=== PATIENT | female | born 1980 | race Caucasian/White ===

== ENCOUNTER 2023-01-16 17:45 | Emergency (ER) | payer OTHER ==
[~2023-01-16] VITALS: Ht 162.6 cm; Wt 99.8 kg
[2023-01-16 18:10] VITALS: BP 156/101
[2023-01-16 18:42] LABS: BASOPHILS ABSOLUTE AUTO 0.07 K/mm3 (0.00-0.23); BASOPHILS PERCENT AUTO 1 % (0-2); EOSINOPHILS ABSOLUTE AUTO 0.03 K/mm3 (0.00-0.68); EOSINOPHILS PERCENT AUTO 1 % (0-6); Hematocrit 40.5 % (33.0-51.0); Hemoglobin 13.8 g/dL (11.5-16.0); IMMATURE GRAN ABSOLUTE AUTO 0.01 K/mm3 (0.00-0.10); IMMATURE GRAN PERCENT AUTO 0 % (0-1); LYMPHOCYTES ABSOLUTE AUTO 0.86 K/mm3 (0.84-5.20); LYMPHOCYTES PERCENT AUTO 14 % (21-46); MONOCYTES ABSOLUTE AUTO 0.35 K/mm3 (0.16-1.47); MONOCYTES PERCENT AUTO 6 % (4-13); Mean Corpuscular HGB 31.1 pg (26.0-34.0); Mean Corpuscular HGB Conc 34.1 g/dL (31.5-36.5); Mean Corpuscular Volume 91 fL (80-100); Mean Platelet Volume 9.6 fL (9.1-12.4); NEUTROPHILS ABSOLUTE AUTO 4.83 K/mm3 (1.96-9.15); NEUTROPHILS PERCENT AUTO 79 % (41-73); Platelet Count 196 K/mm3 (150-400); RDW Standard Deviation 43.8 fL (35.1-46.3); Red Blood Cell Count 4.44 M/mm3 (3.80-5.20); White Blood Cell Count 6.15 K/mm3 (4.00-11.30)
[2023-01-16 19:06] LABS: Albumin, Blood 3.8 g/dL (3.4-5.0); Bilirubin, Total 0.7 mg/dL (0.1-1.0); Bun/Creatinine Ratio 21.2 (12.0-20.0); Creatinine, Blood 0.52 mg/dL (0.40-1.00); Globulin, Blood 3.8 g/dL (2.2-4.0); Potassium, Blood 4.2 mmol/L (3.5-5.5); Total Protein, Blood 7.6 g/dL (6.4-8.2)
== END 2023-01-16 20:31 | disposition home or self-care (01) ==
LOC: ER 17:45
PROVIDERS: Student in an Organized Health Care Education/Training Program
DX: B34.9 Viral infection, unspecified (principal); R55 Syncope and collapse
CPT/HCPCS: 80053; 85025; 99284

== ENCOUNTER 2023-07-21 17:16 | Emergency (ER) | payer OTHER ==
[~2023-07-21] VITALS: Ht 167.6 cm; Wt 81.7 kg
[2023-07-21 17:49] VITALS: BP 160/95
[2023-07-21 18:45] LABS: BASOPHILS ABSOLUTE AUTO 0.02 K/mm3 (0.00-0.23); BASOPHILS PERCENT AUTO 0 % (0-2); EOSINOPHILS ABSOLUTE AUTO 0.05 K/mm3 (0.00-0.68); EOSINOPHILS PERCENT AUTO 1 % (0-6); Hematocrit 41.9 % (33.0-51.0); Hemoglobin 13.9 g/dL (11.5-16.0); IMMATURE GRAN ABSOLUTE AUTO 0.02 K/mm3 (0.00-0.10); IMMATURE GRAN PERCENT AUTO 0 % (0-1); LYMPHOCYTES ABSOLUTE AUTO 0.67 K/mm3 (0.84-5.20); LYMPHOCYTES PERCENT AUTO 9 % (21-46); MONOCYTES ABSOLUTE AUTO 0.55 K/mm3 (0.16-1.47); MONOCYTES PERCENT AUTO 8 % (4-13); Mean Corpuscular HGB 31.5 pg (26.0-34.0); Mean Corpuscular HGB Conc 33.2 g/dL (31.5-36.5); Mean Corpuscular Volume 95 fL (80-100); Mean Platelet Volume 9.7 fL (9.1-12.4); NEUTROPHILS ABSOLUTE AUTO 5.96 K/mm3 (1.96-9.15); NEUTROPHILS PERCENT AUTO 82 % (41-73); Platelet Count 114 K/mm3 (150-400); RDW Coefficient Variation 12.6 % (11.7-14.2); RDW Standard Deviation 44.2 fL (35.1-46.3); Red Blood Cell Count 4.41 M/mm3 (3.80-5.20); White Blood Cell Count 7.27 K/mm3 (4.00-11.30)
[2023-07-21 19:18] LABS: Albumin, Blood 3.9 g/dL (3.4-5.0); Albumin/Globulin Ratio 0.9 (0.8-1.8); Bilirubin, Total 1.1 mg/dL (0.1-1.0); Bun/Creatinine Ratio 20.3 (12.0-20.0); Calcium, Blood 9.2 mg/dL (8.5-10.1); Creatinine, Blood 0.64 mg/dL (0.40-1.00); Globulin, Blood 4.3 g/dL (2.2-4.0); Potassium, Blood 4.2 mmol/L (3.5-5.5); Total Protein, Blood 8.2 g/dL (6.4-8.2)
[2023-07-21] MEDS ORDERED: NS 1,000 ML IV SCH (21:05)
[2023-07-21] MEDS ORDERED: OxyCODONE HCL 5 MG TAB PO ONE (21:15)
[2023-07-21] MEDS ORDERED: Promethazine HCl 25 MG Tab PO ONE (21:15)
[2023-07-21] MEDS ORDERED: PROM25 PO (21:43)
== END 2023-07-21 21:51 | disposition home or self-care (01) ==
LOC: ER 17:16
PROVIDERS: Student in an Organized Health Care Education/Training Program
DX: K85.90 Acute pancreatitis without necrosis or infection, unspecified (principal)
CPT/HCPCS: 76705; 80053; 83690; 85025; 96360; 99284-25; A9270; J7030

== ENCOUNTER 2023-12-08 14:05 | Inpatient (IN) | payer OTHER ==
[~2023-12-08] VITALS: Ht 162.6 cm; Wt 110.7 kg
[~2023-12-08 14:05] MED LIST: PROM25 PO
[2023-12-08 14:32] LABS: BASOPHILS ABSOLUTE AUTO 0.02 K/mm3 (0.00-0.23); BASOPHILS PERCENT AUTO 0 % (0-2); EOSINOPHILS ABSOLUTE AUTO 0.04 K/mm3 (0.00-0.68); EOSINOPHILS PERCENT AUTO 1 % (0-6); Hematocrit 40.6 % (33.0-51.0); Hemoglobin 14.1 g/dL (11.5-16.0); IMMATURE GRAN ABSOLUTE AUTO 0.02 K/mm3 (0.00-0.10); IMMATURE GRAN PERCENT AUTO 0 % (0-1); LYMPHOCYTES ABSOLUTE AUTO 0.69 K/mm3 (0.84-5.20); LYMPHOCYTES PERCENT AUTO 8 % (21-46); MONOCYTES ABSOLUTE AUTO 0.52 K/mm3 (0.16-1.47); MONOCYTES PERCENT AUTO 6 % (4-13); Mean Corpuscular HGB 34.9 pg (26.0-34.0); Mean Corpuscular HGB Conc 34.7 g/dL (31.5-36.5); Mean Corpuscular Volume 101 fL (80-100); Mean Platelet Volume 9.7 fL (9.1-12.4); NEUTROPHILS ABSOLUTE AUTO 7.47 K/mm3 (1.96-9.15); NEUTROPHILS PERCENT AUTO 85 % (41-73); Platelet Count 162 K/mm3 (150-400); RDW Coefficient Variation 12.5 % (11.7-14.2); RDW Standard Deviation 46.5 fL (35.1-46.3); Red Blood Cell Count 4.04 M/mm3 (3.80-5.20); White Blood Cell Count 8.76 K/mm3 (4.00-11.30)
[2023-12-08 15:07] LABS: Albumin, Blood 3.5 g/dL (3.4-5.0); Albumin/Globulin Ratio 0.8 (0.8-1.8); Bilirubin, Total 0.7 mg/dL (0.1-1.0); Bun/Creatinine Ratio 10.3 (12.0-20.0); Calcium, Blood 8.8 mg/dL (8.5-10.1); Creatinine, Blood 0.59 mg/dL (0.40-1.00); Globulin, Blood 4.3 g/dL (2.2-4.0); Potassium, Blood 3.3 mmol/L (3.5-5.5); Total Protein, Blood 7.8 g/dL (6.4-8.2)
[2023-12-08] MEDS ORDERED: Ketorolac Tromethamine 30mg Vial IV ONE (15:10)
[2023-12-08] MEDS ORDERED: NS 1,000 ML IV SCH ×2 (15:10→18:55)
[2023-12-08] MEDS ORDERED: Ondansetron HCl 2 MG / ML 2ML Vial IV ONE (15:10)
[2023-12-08] MEDS ORDERED: Metoclopramide HCl 5MG / ML 2ML Vial IV PRN (16:00)
[2023-12-08] MEDS ORDERED: Ondansetron HCl 2 MG / ML 2ML Vial IV PRN (16:00)
[2023-12-08] MEDS ORDERED: HYDROmorphone HCl/Pf 1MG SYR IV PRN (16:05)
[2023-12-08] MEDS ORDERED: LORazepam 0.5 MG Tab PO PRN (16:10)
[2023-12-08] MEDS ORDERED: VILAZODONE HCL20 MG PO (17:38)
[2023-12-08] MEDS ORDERED: Baclofen20 MG PO (17:38)
[2023-12-08] MEDS ORDERED: Buspirone HCl15 MG PO (17:38)
[2023-12-08] MEDS ORDERED: TRAZ100 PO (17:49)
[2023-12-08] MEDS ORDERED: PROP10 PO (17:49)
[2023-12-08 18:02] VITALS: BP 159/99
--- NOTE | 2023-12-08 18:23 | NUR ---
ADMISSION NOTE: PATIENT ARRIVES TO ROOM VIA WHEELCHAIR AT 1740 FROM ER ADMITT FOR DX'S OF ACUTE PACREATITIS. PATIENT OREINTATED TO ROOM AND CALL SYSTEM. ADMISSION, MEDRIC AND SKIN ASSESSMENT c 2 RN'S VERIFIED COMPLETED. PATIENT A/OX4, PLEASANT AND COOPERATIVE c CARE. PATIENT REPORTS NAUSEOUS AND PAIN 8/10 TO MID ABDOMEN AND RADIATES TO BACK, MEDICATED FOR NAUSEA AND FOR PAIN PER EMAR c MOD EFFECT. PATIENT ON CL DIET. PATIENT RESTING IN BED c CALL LIGHT IN REACH.
[2023-12-08 19:38] VITALS: BP 144/91
[2023-12-08] MEDS ORDERED: TraZODone HCl 100 MG Tab PO SCH (21:00)
[2023-12-08] MEDS ORDERED: Baclofen 10 MG Tab PO SCH (21:00)
[2023-12-08] MEDS ORDERED: Propranolol HCL 20 MG TAB PO SCH (21:00)
[2023-12-08] MEDS ORDERED: BusPIRone HCl 10 MG Tab PO SCH (21:00)
[2023-12-09 03:14] VITALS: BP 136/76
[2023-12-09 05:32] LABS: BASOPHILS ABSOLUTE AUTO 0.01 K/mm3 (0.00-0.23); BASOPHILS PERCENT AUTO 0 % (0-2); EOSINOPHILS ABSOLUTE AUTO 0.06 K/mm3 (0.00-0.68); EOSINOPHILS PERCENT AUTO 1 % (0-6); Hemoglobin 14.8 g/dL (11.5-16.0); IMMATURE GRAN ABSOLUTE AUTO 0.03 K/mm3 (0.00-0.10); IMMATURE GRAN PERCENT AUTO 0 % (0-1); LYMPHOCYTES ABSOLUTE AUTO 0.72 K/mm3 (0.84-5.20); LYMPHOCYTES PERCENT AUTO 8 % (21-46); MONOCYTES PERCENT AUTO 7 % (4-13); Mean Corpuscular HGB 34.7 pg (26.0-34.0); Mean Corpuscular HGB Conc 33.6 g/dL (31.5-36.5); Mean Corpuscular Volume 103 fL (80-100); Mean Platelet Volume 10.3 fL (9.1-12.4); NEUTROPHILS ABSOLUTE AUTO 7.95 K/mm3 (1.96-9.15); NEUTROPHILS PERCENT AUTO 84 % (41-73); Platelet Count 148 K/mm3 (150-400); RDW Coefficient Variation 12.7 % (11.7-14.2); RDW Standard Deviation 47.9 fL (35.1-46.3); Red Blood Cell Count 4.26 M/mm3 (3.80-5.20); White Blood Cell Count 9.47 K/mm3 (4.00-11.30)
[2023-12-09 05:58] LABS: Magnesium, Blood 2.1 mg/dL (1.6-2.4)
[2023-12-09 05:59] LABS: Albumin, Blood 3.7 g/dL (3.4-5.0); Albumin/Globulin Ratio 0.8 (0.8-1.8); Bilirubin, Total 0.7 mg/dL (0.1-1.0); Calcium, Blood 8.9 mg/dL (8.5-10.1); Creatinine, Blood 0.54 mg/dL (0.40-1.00); Globulin, Blood 4.5 g/dL (2.2-4.0); Phosphorus, Blood 3.6 mg/dL (2.5-4.9); Potassium, Blood 3.3 mmol/L (3.5-5.5); Total Protein, Blood 8.2 g/dL (6.4-8.2)
--- NOTE | 2023-12-09 06:36 | NUR ---
SHIFT SUMMARY PATIENT ALERT AND ORIENTED X4. MEDICATED PER EMAR FOR PAIN AND NAUSEA. DENIED ANY CHEST PAIN OR SHORTNESS OF BREATH. ON ROOM AIR, VITAL SIGNS STABLE. NO ACUTE ISSUES NOTED OVERNIGHT. WILL CONTINUE TO MONITOR. CALL LIGHT WITHIN REACH.
[2023-12-09 07:13] VITALS: BP 148/90
[2023-12-09] MEDS ORDERED: Potassium Chloride 20 MEQ/15 ML UDC PO ONE (08:00)
[2023-12-09] MEDS ORDERED: Bisacodyl 10 MG Supp PR PRN (08:40)
[2023-12-09] MEDS ORDERED: Enoxaparin 40 MG/0.4 ML SYR SC SCH (09:00)
[2023-12-09] MEDS ORDERED: Misc. Tablet PO SCH (09:00)
[2023-12-09 14:42] VITALS: BP 154/101
[2023-12-09 15:15] VITALS: BP 128/94
[2023-12-09 15:26] VITALS: BP 147/114
--- NOTE | 2023-12-09 17:45 | NUR ---
SHIFT SUMMARY PATIENT A/OX4, INDEPENDENT IN ROOM. SYMPTOMS BEING MANAGED WITH IV DILAUDED AND IV NAUSEA MEDS PER AUG. NS CONTINUOUS AT 150/HR. HAD SUPPOSITORY THIS SHIFT WITH NO OUTPUT. PATIENT STATED WOULD LIKE TO WAIT UNTIL TOMORROW TO ADD MORE BOWEL MEDS. TOLERATING CLEARS MODERATELY WELL. CALL LIGHT IN REACH, ABLE TO MAKE NEEDS KNOWN. CARES ONGOING.
[2023-12-09 19:44] VITALS: BP 158/105
[2023-12-10 03:48] VITALS: BP 134/94
[2023-12-10 05:47] LABS: BASOPHILS ABSOLUTE AUTO 0.03 K/mm3 (0.00-0.23); BASOPHILS PERCENT AUTO 0 % (0-2); EOSINOPHILS ABSOLUTE AUTO 0.16 K/mm3 (0.00-0.68); EOSINOPHILS PERCENT AUTO 2 % (0-6); Hematocrit 37.1 % (33.0-51.0); Hemoglobin 12.3 g/dL (11.5-16.0); IMMATURE GRAN ABSOLUTE AUTO 0.03 K/mm3 (0.00-0.10); IMMATURE GRAN PERCENT AUTO 0 % (0-1); LYMPHOCYTES ABSOLUTE AUTO 0.92 K/mm3 (0.84-5.20); LYMPHOCYTES PERCENT AUTO 11 % (21-46); MONOCYTES ABSOLUTE AUTO 0.89 K/mm3 (0.16-1.47); MONOCYTES PERCENT AUTO 11 % (4-13); Mean Corpuscular HGB 34.8 pg (26.0-34.0); Mean Corpuscular HGB Conc 33.2 g/dL (31.5-36.5); Mean Corpuscular Volume 105 fL (80-100); NEUTROPHILS ABSOLUTE AUTO 6.15 K/mm3 (1.96-9.15); NEUTROPHILS PERCENT AUTO 75 % (41-73); Platelet Count 135 K/mm3 (150-400); RDW Coefficient Variation 12.8 % (11.7-14.2); RDW Standard Deviation 49.6 fL (35.1-46.3); Red Blood Cell Count 3.53 M/mm3 (3.80-5.20); White Blood Cell Count 8.18 K/mm3 (4.00-11.30)
[2023-12-10 06:15] LABS: Albumin, Blood 2.9 g/dL (3.4-5.0); Anion Gap 8 mmol/L (3-11); Blood Urea Nitrogen 6 mg/dL (8-24); Bun/Creatinine Ratio 9.9 (12.0-20.0); CO2, Blood 26 mmol/L (21-32); Calcium, Blood 8.5 mg/dL (8.5-10.1); Chloride, Blood 106 mmol/L (98-108); Creatinine, Blood 0.61 mg/dL (0.40-1.00); Glomerular Filtration Rate 114 (60-); Glucose, Blood 93 mg/dL (70-99); Phosphorus, Blood 3.1 mg/dL (2.5-4.9); Potassium, Blood 3.4 mmol/L (3.5-5.5); Sodium, Blood 137 mmol/L (136-145)
[2023-12-10 07:46] VITALS: BP 145/84
[2023-12-10] MEDS ORDERED: NS 1,000 ML IV SCH (15:05)
[2023-12-10] MEDS ORDERED: OxyCODONE HCL 5 MG TAB PO PRN (15:05)
--- NOTE | 2023-12-10 17:35 | NUR ---
SHIFT SUMMARY; NO ACUTE CHANGES IN PATEINT CONDITION NOTED TODAY. PAIN MEDICATION IS CHANGED TO PO. PATIENT IS AO X 4 THROUGHTOUT DAY. SHE IS PROVIDED WITH ALCOHOL DETOX RESOURCES. SHE IS RECEIVING NS AT 50ML/HR. SHE WALKS IN THE [place] TODAY WITHOIUT DIFFICULTY. PLAN IS FOR HER TO GO HOME TOMORROW.
[2023-12-10] MEDS ORDERED: Ondansetron 4 MG TAB PO SCH (18:00)
[2023-12-10 19:40] VITALS: BP 133/88
[2023-12-11 04:18] VITALS: BP 116/61
--- NOTE | 2023-12-11 05:36 | NUR ---
SHIFT SUMMARY PT A&OX4 AND PLEASANT. INDEPENDENT IN ROOM. CALLS APPROPRIATLY. PT C/O ABD PAIN AND WAS MEDICATED PER EMAR. TOLERATING FULL LIQUID DIET. NO N/V. VSS. BED IN LOWEST POSITION AND CALL LIGHT IN REACH.
[2023-12-11 06:38] LABS: Bun/Creatinine Ratio 8.5 (12.0-20.0); Calcium, Blood 8.7 mg/dL (8.5-10.1); Creatinine, Blood 0.59 mg/dL (0.40-1.00); Potassium, Blood 3.4 mmol/L (3.5-5.5)
[2023-12-11 07:25] VITALS: BP 135/85
[2023-12-11] MEDS ORDERED: Potassium Chloride 20 MEQ TabCR PO SCH (08:00)
[2023-12-11] MEDS ORDERED: ONDA4 PO (09:42)
[2023-12-11] MEDS ORDERED: OXAYDO5 M1 PO (09:44)
[2023-12-11] MEDS ORDERED: POTA10T PO (09:47)
--- NOTE | 2023-12-11 10:38 | NUR ---
DISCHARGE SUMMARY PT DC THIS SHIFT. PT LEFT VIA PRIVATE VEHICLE ACCOMPAINIED BY SPOUSE. PT VERBILIZED UNDERSTANDING OF DC ORDERS.
--- NOTE | 2023-12-11 12:19 | NUR ---
THIS WASH DRILLER HAS REVIEWED AND AGREES ALL NOTES AND ASSESSMENTS BY FRANCISCO CURRY.
== END 2023-12-11 10:47 | disposition home or self-care (01) | DRG 439 ==
LOC: ER 14:05 → MEDS 15:54
PROVIDERS: Physician Assistant; ADMIT Family Medicine
DX: K85.90 Acute pancreatitis without necrosis or infection, unspecified (principal); Z68.41 Body mass index [BMI] 40.0-44.9, adult; F32.A Depression, unspecified; F41.9 Anxiety disorder, unspecified; G47.33 Obstructive sleep apnea (adult) (pediatric); K76.0 Fatty (change of) liver, not elsewhere classified; F10.90 Alcohol use, unspecified, uncomplicated; Z71.41 Alcohol abuse counseling and surveillance of alcoholic; E66.3 Overweight
CPT/HCPCS: 36415; 80048; 80053; 80069; 83690; 83735; 84100; 85025; 96361; 96374; 96375; A9270; J1170; J1885; J2405; J2765; J7030

== ENCOUNTER 2024-01-09 15:39 | Emergency (ER) | payer OTHER ==
[~2024-01-09] VITALS: Ht 162.6 cm; Wt 108.9 kg
[~2024-01-09 15:39] MED LIST changes: +Baclofen20 MG PO; +Buspirone HCl15 MG PO; +ONDA4 PO; +OXAYDO5 M1 PO; +POTA10T PO; +PROP10 PO; +TRAZ100 PO; +VILAZODONE HCL20 MG PO
[2024-01-09] MEDS ORDERED: Ondansetron HCl 2 MG / ML 2ML Vial IV ONE ×2 (15:45→17:15)
[2024-01-09] MEDS ORDERED: Ketorolac Tromethamine 15mg Vial IV ONE (15:50)
[2024-01-09 15:58] LABS: BASOPHILS ABSOLUTE AUTO 0.03 K/mm3 (0.00-0.23); BASOPHILS PERCENT AUTO 1 % (0-2); EOSINOPHILS ABSOLUTE AUTO 0.06 K/mm3 (0.00-0.68); EOSINOPHILS PERCENT AUTO 1 % (0-6); Hematocrit 42.7 % (33.0-51.0); Hemoglobin 14.8 g/dL (11.5-16.0); IMMATURE GRAN ABSOLUTE AUTO 0.01 K/mm3 (0.00-0.10); IMMATURE GRAN PERCENT AUTO 0 % (0-1); LYMPHOCYTES ABSOLUTE AUTO 0.91 K/mm3 (0.84-5.20); LYMPHOCYTES PERCENT AUTO 14 % (21-46); MONOCYTES ABSOLUTE AUTO 0.43 K/mm3 (0.16-1.47); MONOCYTES PERCENT AUTO 7 % (4-13); Mean Corpuscular HGB 33.5 pg (26.0-34.0); Mean Corpuscular HGB Conc 34.7 g/dL (31.5-36.5); Mean Corpuscular Volume 97 fL (80-100); Mean Platelet Volume 9.5 fL (9.1-12.4); NEUTROPHILS PERCENT AUTO 77 % (41-73); Platelet Count 159 K/mm3 (150-400); RDW Coefficient Variation 12.9 % (11.7-14.2); Red Blood Cell Count 4.42 M/mm3 (3.80-5.20); White Blood Cell Count 6.34 K/mm3 (4.00-11.30)
[2024-01-09 16:29] LABS: Albumin, Blood 3.9 g/dL (3.4-5.0); Bilirubin, Total 1.4 mg/dL (0.1-1.0); Bun/Creatinine Ratio 13.2 (12.0-20.0); Creatinine, Blood 0.76 mg/dL (0.40-1.00); Potassium, Blood 3.6 mmol/L (3.5-5.5); Total Protein, Blood 7.9 g/dL (6.4-8.2)
[2024-01-09] MEDS ORDERED: Ondansetron HCl 2 MG / ML 2ML Vial IM ONE (16:50)
[2024-01-09] MEDS ORDERED: Lactated Ringer's 1,000 ML IV ONE (17:00)
[2024-01-09] MEDS ORDERED: HYDROmorphone HCl/Pf 1MG SYR IV SCH (18:00)
[2024-01-09] MEDS ORDERED: RX Prepack 6 Tabs Oxycodone 5mg UD ONE (18:20)
[2024-01-09 18:30] VITALS: BP 135/105
[2024-01-10] MEDS ORDERED: KETO10 PO (15:40)
[2024-01-10] MEDS ORDERED: PROMETHAZINE12.5 M1 PO (15:44)
== END 2024-01-09 18:42 | disposition home or self-care (01) ==
LOC: ER 15:39
PROVIDERS: Physician Assistant
DX: K85.90 Acute pancreatitis without necrosis or infection, unspecified (principal); F10.90 Alcohol use, unspecified, uncomplicated
CPT/HCPCS: 80053; 83690; 85025; A9270; J1170; J1885; J2405; J7120

== ENCOUNTER → 2025-06-03 | Outpatient (CLI) | payer SELFPAY ==
[~2025-06-03] MED LIST changes: +KETO10 PO; +PROMETHAZINE12.5 M1 PO
[2025-06-03 13:04] LABS: BASOPHILS ABSOLUTE AUTO 0.02 K/mm3 (0.00-0.23); BASOPHILS PERCENT AUTO 0 % (0-2); EOSINOPHILS ABSOLUTE AUTO 0.00 K/mm3 (0.00-0.68); EOSINOPHILS PERCENT AUTO 0 % (0-6); Hematocrit 41.0 % (33.0-51.0); Hemoglobin 14.3 g/dL (11.5-16.0); IMMATURE GRAN ABSOLUTE AUTO 0.02 K/mm3 (0.00-0.10); IMMATURE GRAN PERCENT AUTO 0 % (0-1); LYMPHOCYTES ABSOLUTE AUTO 0.64 K/mm3 (0.84-5.20); LYMPHOCYTES PERCENT AUTO 8 % (21-46); MONOCYTES ABSOLUTE AUTO 0.54 K/mm3 (0.16-1.47); MONOCYTES PERCENT AUTO 7 % (4-13); Mean Corpuscular HGB Conc 34.9 g/dL (31.5-36.5); Mean Corpuscular Volume 102 fL (80-100); NEUTROPHILS ABSOLUTE AUTO 6.57 K/mm3 (1.96-9.15); NEUTROPHILS PERCENT AUTO 84 % (41-73); NRBC ABSOLUTE 0.00 K/mm3 (0.00-0.02); NRBC Auto 0.0 /100 WBC (0.0-0.2); RDW Coefficient Variation 12.8 % (11.7-14.2); RDW Standard Deviation 47.9 fL (35.1-46.3)
[2025-06-03 13:05] LABS: Platelet Count 135 K/mm3 (150-400)
[2025-06-03 13:11] LABS: Alanine Aminotransfer (ALT/SGP 98.0 U/L (12-78); Albumin, Blood 3.8 g/dL (3.4-5.0); Albumin/Globulin Ratio 0.8 (0.8-1.8); Anion Gap 17.0 mmol/L (3-11); Aspartate Aminotrans (AST/SGOT 196.0 U/L (12-37); Bilirubin, Total 2.2 mg/dL (0.1-1.0); Blood Urea Nitrogen 12.0 mg/dL (8-24); CO2, Blood 26.0 mmol/L (21-32); Calcium, Blood 8.9 mg/dL (8.5-10.1); Chloride, Blood 96.0 mmol/L (98-108); Creatinine, Blood 0.81 mg/dL (0.40-1.00); Globulin, Blood 4.6 g/dL (2.2-4.0); Glucose, Blood 127.0 mg/dL (70-99); Potassium, Blood 3.5 mmol/L (3.5-5.5); Sodium, Blood 135.0 mmol/L (136-145); Total Protein, Blood 8.4 g/dL (6.4-8.2)
== END ==
LOC: LAB 12:55 → LAB SHORT 12:55
PROVIDERS: Physician Assistant
DX: R10.9 Unspecified abdominal pain (principal)
CPT/HCPCS: 80053; 83690; 85025